=== PATIENT | male | born 1985 | race Caucasian/White ===

== ENCOUNTER 2017-12-22 16:16 | Emergency (ER) | payer OTHER, SELFPAY ==
[2017-12-22 16:18] VITALS: BP 155/77; PULSE 72; RESP 17; TEMP 37.1; O2SAT 100; BMI 29.0
--- NOTE | 2017-12-22 16:25 | ED.VISSUMM ---
- ER Visit Summary Date of Service: 12/22/17 Chief Complaint: Left thumb injury History of Present Illness: The patient is a 32 M emergency department injury to left thumb. Patient states yesterday, he was working on his truck. He states he was using a hammer. He states he missed with a hammer and struck the left thumb. He states since then, he said increasing swelling and pain. He is right-hand dominant. He is unsure of his last tetanus. He takes no daily medications. Physical Examination: Exam is relatively unremarkable. Patient does have contusion and some swelling of the thumb. His cap refill is less than 2 seconds. He also has subungual hematoma. He is able to flex and extend. There is no other injury in the hand. Test Results: [] Emergency Department Course and Treatment: Patient's tetanus is updated. Is given oral Naprosyn. Plain films were obtained. This does demonstrate a distal tuft fracture with some comminution. I do feel that a subungual hematoma needs drained. This was done with electrocautery and the patient did have significant improvement of his pain. As this is now an open fracture, the patient will be given orthopedic follow-up. He will be placed on Keflex and a short course of analgesics. He is placed in a splint. He was counseled on concerning symptoms and reasons to return. I did res counselor him that if is not improving over the next 24-48 hours to return to the emergency department. Treatment Plan: [] Disposition: Discharge Impression: 1. A tuft fracture left thumb 2. Subungual hematoma with cautery drainage This note was generated with [employer] dictation software. It may contain incorrect words, spelling, and punctuation that were not noted in review of the chart prior to signing ED Disposition - Plan for ED Patient: Chief Complaint: Upper Extremity Injury Instructions: ED Fx Finger Open, ED Hematoma Subungual Prescriptions: Hydrocodone Bitart/Apap 5-325 [[place] 5MG-325MG] 1 tab PO Q6H PRN PRN 3 Days #10 tab PRN Reason: Pain Cephalexin [Keflex] 500 mg PO Q6 #40 cap Referrals: Jeaneth Crook DO [STAFF PHYSICIAN] -
--- NOTE | 2017-12-22 16:30 | RAD_ITS ---
STUDY: X-RAY - LEFT HAND, ATTENTION FIRST FINGER REASON FOR EXAM: Male, 32 years old. Smash injury of the thumb TECHNIQUE: 3 view(s) of the finger were obtained. COMPARISON: None. FINDINGS: Small fracture through the distal tip of the left thumb. Subjacent soft tissue swelling. RAD/Finger(s) Min 2 Views IMPRESSION: As above Electronically Signed: Jm Harris DO at 16:52 EDT Tel , Service support ,
[2017-12-22] MEDS: Naproxen 500 MG Tablet PO (16:50)
[2017-12-22] MEDS: Diphth,Pertuss(Acell),Tet Vac 0.5 ML Vial IM (16:50)
[2017-12-22 17:02] VITALS: PULSE 81; RESP 16; O2SAT 100
== END 2017-12-22 17:04 | disposition home or self-care (01) ==
PROVIDERS: Emergency Provider Emergency Medicine
DX: S62.522B Displaced fracture of distal phalanx of left thumb, initial encounter for open fracture (principal); S60.112A Contusion of left thumb with damage to nail, initial encounter; Y93.89 Activity, other specified; W22.8XXA Striking against or struck by other objects, initial encounter; Y92.9 Unspecified place or not applicable; Z72.0 Tobacco use
CPT/HCPCS: 11740; 11730; 73140; 90715; 99283

== ENCOUNTER 2019-11-06 08:35 | Emergency (ER) | payer SELFPAY ==
[2019-11-06 08:36] VITALS: BP 157/81; PULSE 89; RESP 16; TEMP 36.3; O2SAT 100; BMI 25.1
--- NOTE | 2019-11-06 08:51 | ED.VISSUMM ---
- ER Visit Summary Date of Service: 11/06/19 Chief Complaint: [Facial swelling and dental pain] History of Present Illness: The patient is a 34 M [presents the emergency department with right-sided facial swelling that started this morning. He is got some discomfort to his right upper teeth. Patient denies any fevers. He denies any trauma to his teeth. Patient has no medical history.] Physical Examination: [HEENT-PERRLA, EOMI. Cranial nerves II through XII grossly intact. TMs clear. Mucous membranes moist. No adenopathy. Dentition-patient has right upper facial swelling noted. There is no facial erythema or cellulitis noted. Patient does have tenderness palpation over the right upper premolar tooth #3 that is tender to palpation. He had some gingival swelling that is focal without any fluctuance noted. Cardiovascular-regular rate and rhythm without murmur or ectopy Lungs-clear to auscultation, chest wall stable without crepitus or subcu emphysema Abdomen-normoactive bowel sounds, soft, nontender, no rebound or rigidity, no peritoneal signs. Extremities-intact ?4, normal range of motion, normal pulses, atraumatic] Test Results: [None indicated] Emergency Department Course and Treatment: [Patient was given a dose of clindamycin.] Treatment Plan: [We will be given a prescription for clindamycin and a few [place] for pain. Patient given list of dentist in town to follow-up with.] Disposition: [Discharged home in stable condition] Impression: [Dental pain with early dental abscess] This note was generated with [employer] dictation software. It may contain incorrect words, spelling, and punctuation that were not noted in review of the chart prior to signing ED Disposition - Plan for ED Patient: Referrals: Care Physician,No Primary [Primary Care Provider] -
--- NOTE | 2019-11-06 08:54 | ED.DEP ---
ED Disposition - Plan for ED Patient: Instructions: ED Tooth Pain, ED ABSCESS DENTAL Prescriptions: Clindamycin HCl [Cleocin] 300 mg PO Q6H #40 cap Prescription Printed Naproxen [Naprosyn] 500 mg PO BID PRN #20 tab Prescription Printed Hydrocodone Bitart/Apap 5-325 [[place] 5MG-325MG] 1 tab PO Q4H PRN PRN 2 Days #10 tab PRN Reason: Pain Prescription Printed Referrals: Care Physician,No Primary [Primary Care Provider] - Additional Instructions: see a dentist
[2019-11-06] MEDS: Clindamycin HCl 150 MG Capsule 300 MG PO (08:59)
[2019-11-06 10:15] VITALS: RESP 14
== END 2019-11-06 10:16 | disposition home or self-care (01) ==
LOC: ED 09:50
PROVIDERS: Emergency Provider Emergency Medicine
DX: K04.7 Periapical abscess without sinus (principal); F17.200 Nicotine dependence, unspecified, uncomplicated
CPT/HCPCS: 99283